=== PATIENT | male | born 1980 | race Caucasian/White ===

== ENCOUNTER 2017-01-09 20:04 | Emergency (ER) | payer SELFPAY ==
[~2017-01-09] VITALS: Ht 175.3 cm; Wt 63.5 kg
[2017-01-09] MEDS ORDERED: NO MEDICATIONS (20:18)
== END 2017-01-09 20:50 | disposition left against medical advice (07) ==
LOC: SED 20:04
DX: Z53.21 Procedure and treatment not carried out due to patient leaving prior to being seen by health care provider (principal)